=== PATIENT | female | born 1945 | race Caucasian/White ===

== ENCOUNTER 2019-07-08 13:27 | Day surgery (SDC) | payer OTHER ==
[~2019-07-08] VITALS: Ht 162.6 cm; Wt 81.7 kg
[~2019-07-08 13:27] MED LIST: BUPROPION HCL100 MG PO; CHROMIUM PICO200 MC1 PO; COQ-10100 MG PO; FLONASE 0.05%50 MCG NASAL; HYDROCHLOROTHIA25 M2 PO; LEVO-T50 MCG PO; NORCO 5-325 TA1 EAC1 PO; POTASSIUM PO; TEMAZEPAM30 MG PO; VITAMIN B-122000 MC1 PO; VITAMIN C500 M1 PO; VITAMIN D32000 UNIT PO; ZOCOR20 MG PO; ZYRTEC10 MG PO
[2019-07-08 14:30] VITALS: BP 128/80
== END 2019-07-08 16:40 | disposition home or self-care (01) ==
LOC: OR 13:27 → TBA 13:33 → OR 16:12
DX: M72.2 Plantar fascial fibromatosis (principal); M79.672 Pain in left foot; E78.5 Hyperlipidemia, unspecified; K21.9 Gastro-esophageal reflux disease without esophagitis; E03.9 Hypothyroidism, unspecified; Z98.890 Other specified postprocedural states; Z79.899 Other long term (current) drug therapy; Z90.710 Acquired absence of both cervix and uterus; Z87.442 Personal history of urinary calculi; Z98.41 Cataract extraction status, right eye; Z98.42 Cataract extraction status, left eye; Z87.891 Personal history of nicotine dependence; Z85.038 Personal history of other malignant neoplasm of large intestine; Z90.49 Acquired absence of other specified parts of digestive tract; Z88.8 Allergy status to other drugs, medicaments and biological substances
CPT/HCPCS: 50010; 50101; 50386; 51291; 57091; 57178; 62110; 62850; 70005